=== PATIENT | female | born 1960 | race American Indian/Alaskan Native ===

== ENCOUNTER 2017-05-11 17:35 | Inpatient (IN) | payer MEDICAID ==
[2017-05-11] MEDS ORDERED: ASPIRIN PO ONE (18:08)
[2017-05-11 18:54] LABS: Basophils % (Auto) 0.2 % (0.0-1.8); Eosinophils # (Auto) 0.1 K/mm3 (0.0-0.4); Hematocrit 36.5 % (30.3-42.9); Hemoglobin 12.2 gm/dl (10.1-14.3); Lymphocytes # (Auto) 2.1 K/mm3 (1.2-5.4); Lymphocytes % (Auto) 25.5 % (13.4-35.0); Mean Corpuscular HGB Conc 33 % (30-34); Mean Corpuscular Hemoglobin 28 pg (28-32); Mean Corpuscular Volume 85 fl (79-97); Monocytes # (Auto) 0.5 K/mm3 (0.0-0.8); Monocytes % (Auto) 6.8 % (0.0-7.3); Platelet Count 183 K/mm3 (140-440); Red Blood Count 4.28 M/mm3 (3.65-5.03); Red Cell Distribution Width 17.5 % (13.2-15.2)
[2017-05-11 19:06] LABS: BUN/Creatinine Ratio 15; Blood Urea Nitrogen 17 mg/dL (7-17); Calcium 8.3 mg/dL (8.4-10.2); Hemolysis Index 5
--- NOTE | 2017-05-11 21:10 | XRay Report ---
FINAL REPORT PROCEDURE: XR CHEST ROUTINE 2V TECHNIQUE: PA and lateral chest radiographs were obtained. CPT 00155 HISTORY: chest pain with severe SOB COMPARISON: No prior studies are available for comparison. FINDINGS: Heart: Normal. Mediastinum/Vessels: Normal. Lungs/Pleural space: Normal. Bony thorax: No acute osseous abnormality. Other: IMPRESSION: Normal examination.
--- NOTE | 2017-05-11 23:23 | Emergency Department Report ---
ED Chest Pain HPI - General Chief Complaint: Chest Pain Stated Complaint: CP/LEFT ARM PAIN Time Seen by Provider: 05/11/17 21:20 Source: patient Mode of arrival: Ambulatory Limitations: No Limitations - History of Present Illness Initial Comments: This is a 56-year-old female with a past medical history significant for asthma , COPD, hypertension who states that she has had chest pain described as sharp and then dull and achy more so on the left side with radiation to the left arm and shortness of breath for roughly 2 days. It became worse this morning at 10 AM and has persisted ever since. The patient is tearful and upset. She also states she has left hip pain and right leg pain. She actually then states that the pain is in the back of her leg and in the calf area particularly on the left side. She also reports being short with ambulation. She denies other symptoms at this time. She reflexively for pain. MD Complaint: chest pain -: Gradual, days(s) (2) Pain Location: left chest Pain Radiation: LUE Severity: moderate Severity scale (0 -10): 6 Quality: dull Consistency: intermittent Improves With: nothing Worsens With: nothing re: dyspnea. denies: nausea, vomting, diaphoresis Other Symptoms: denies: cough, fever, syncope Treatments Prior to Arrival: none - Related Data Home Medications Medication Instructions Recorded Confirmed Last Taken ALBUTEROL Inhaler [ProAir HFA 8.5 gram IH DAILY PRN 05/11/17 05/11/17 04/21/17 Inhaler] Bupropion HCl [Wellbutrin Xl] 300 mg PO QAM 05/11/17 05/11/17 04/21/17 Fluticasone/Vilanterol [Breo 1 each IH BID 05/11/17 05/11/17 04/21/17 Ellipta 200-25 Mcg INH] Simvastatin [Zocor TAB] 20 mg PO DAILY 05/11/17 05/11/17 04/21/17 Trazodone HCl 50 mg PO QPM 05/11/17 05/11/17 04/21/17 Allergies Allergy/AdvReac Type Severity Reaction Status Date / Time aspirin Allergy Rash Verified 05/11/17 18:04 banana Allergy Rash Verified 05/11/17 18:04 Heart Score - HEART Score History: Moderately suspicious EKG: Non-specific Age: 45-65 Risk factors: 1-2 risk factors Troponin: < normal limit HEART Score: 4 ED Review of Systems ROS: Stated complaint: CP/LEFT ARM PAIN Other details as noted in HPI Comment: All other systems reviewed and negative Constitutional: see HPI Eyes: as per HPI ENT: as per HPI Respiratory: see HPI Cardiovascular: as per HPI Endocrine: see HPI Gastrointestinal: as per HPI Genitourinary: as per HPI Musculoskeletal: as per HPI Skin: as per HPI Neurological: as per HPI Psychiatric: as per HPI Hematological/Lymphatic: as per HPI ED Past Medical Hx - Past Medical History Previous Medical History?: Yes Hx Hypertension: Yes Hx Asthma: Yes Hx COPD: Yes - Surgical History Past Surgical History?: Yes Hx Cholecystectomy: Yes Additional Surgical History: Hysterectomy - Social History Smoking Status: Former Smoker Substance Use Type: Alcohol, Prescribed - Medications Home Medications: Home Medications Medication Instructions Recorded Confirmed Last Taken Type ALBUTEROL Inhaler [ProAir HFA 8.5 gram IH DAILY PRN 05/11/17 05/11/17 04/21/17 History Inhaler] Bupropion HCl [Wellbutrin Xl] 300 mg PO QAM 05/11/17 05/11/17 04/21/17 History Fluticasone/Vilanterol [Breo 1 each IH BID 05/11/17 05/11/17 04/21/17 History Ellipta 200-25 Mcg INH] Simvastatin [Zocor TAB] 20 mg PO DAILY 05/11/17 05/11/17 04/21/17 History Trazodone HCl 50 mg PO QPM 05/11/17 05/11/17 04/21/17 History ED Physical Exam - General Limitations: No Limitations General appearance: alert, in no apparent distress - Eye Eye exam: Present: normal appearance, PERRL, EOMI - ENT ENT exam: Present: normal exam, normal orophraynx - Neck Neck exam: Present: normal inspection - Respiratory Respiratory exam: Present: normal lung sounds bilaterally. Absent: respiratory distress, wheezes, rales, rhonchi - Cardiovascular Cardiovascular Exam: Present: regular rate, normal rhythm, normal heart sounds - GI/Abdominal GI/Abdominal exam: Present: soft, normal bowel sounds - Rectal Rectal exam: Present: deferred - Extremities Exam Extremities exam: Present: normal inspection, tenderness (throughout the extremities bilaterally but she appears to have more pain in the left calf muscle.) - Back Exam Back exam: Present: normal inspection - Neurological Exam Neurological exam: Present: alert, oriented X3, CN II-XII intact - Psychiatric Psychiatric exam: Present: anxious - Skin Skin exam: Present: warm, dry, intact, normal color ED Course Vital Signs 05/11/17 05/11/17 05/11/17 18:04 21:11 21:12 Temperature 98 F Pulse Rate 76 73 Respiratory 22 16 16 Rate Blood Pressure 131/83 Blood Pressure 122/65 [Left] O2 Sat by Pulse 100 98 Oximetry - Reevaluation(s) Reevaluation #1: 05/12/17 00:20 I tried to reassure the patient that her cardiac enzymes were negative. Her d- dimer was also negative as well as a BNP. I discussed case with the hospitalist and we will go ahead and admit the patient for chest pain at this time. The patient morphine and Zofran and Valium. ED Medical Decision Making - Lab Data Result diagrams: 05/11/17 18:39 05/11/17 18:39 Critical care attestation.: If time is entered above; I have spent that time in minutes in the direct care of this critically ill patient, excluding procedure time. ED Disposition Clinical Impression: Chest pain at rest, Myalgia COPD (chronic obstructive pulmonary disease) Qualifiers: COPD type: chronic bronchitis Chronic bronchitis type: unspecified Qualified Code(s): J42 - Unspecified chronic bronchitis Disposition: OP ADMIT IP TO THIS HOSP Is pt being admited?: Yes Does the pt Need Aspirin: No Condition: Stable Instructions: Chest Pain (ED), Chronic Obstructive Pulmonary Disease (ED) Referrals: SAIMA LOCKHART MD [Primary Care Provider] - 3-5 Days
[2017-05-11] MEDS ORDERED: VALIUM PO ONE (23:39)
[2017-05-11] MEDS ORDERED: MORPHINE IV ONE (23:39)
[2017-05-11] MEDS ORDERED: ZOFRAN IV ONE (23:39)
[2017-05-12] MEDS ORDERED: MORPHINE ONE (00:10)
[2017-05-12 00:16] LABS: Alanine Aminotransferase 11 units/L (7-56); Albumin 3.3 g/dL (3.9-5)
[2017-05-12 00:25] LABS: Bilirubin,Direct < 0.2 mg/dL (0-0.2)
[2017-05-12] MEDS ORDERED: SODIUM CHLORIDE FLUSH SYRINGE 10 ML IV PRN (00:36)
[2017-05-12] MEDS ORDERED: ZOFRAN IV PRN (00:36)
[2017-05-12] MEDS ORDERED: TYLENOL PO PRN (00:36)
[2017-05-12 01:40] LABS: Creatine Kinase MB 1.7 ng/mL (0.0-4.0)
--- NOTE | 2017-05-12 02:36 | History and Physical Report ---
History of Present Illness Date of examination: 05/12/17 Date of admission: 05/12/17 00:37 History of present illness: 56-year-old lady with a history of COPD, hypertension, asthma comes emergency room with complaints of chest pain and left-sided that started yesterday. She described the pain as dull, intermittent, 15 minutes, intensity 4/10, but the pain is now constant. She cannot identify exacerbating or relieving factor, no radiation. Admits to nausea, shortness of breath, no diaphoresis or palpitation. She does stress test 3 months ago which was negative Review of systems Constitutional: no weight loss, chills Ears, eyes, nose, mouth and throat: no nasal congestion, no nasal discharge, no sinus pressure, no vision change, no red eye. Neck: No neck pain or rigidity. Cardiovascular: no palpitations Respiratory: No cough Gastrointestinal: no abdominal pain, hematochezia Genitourinary : no dysuria, frequency , no hematuria Musculoskeletal: no joint swelling or muscle ache Integumentary: no rash, no pruritis Neurological: no parathesias, no numbness, no focal weakness Endocrine: no cold or heat intolerance, no polyuria or polydipsia Hematologic/Lymphatic: no easy bruising, no easy bleeding, no gland swelling Allergic/Immunologic: no urticaria, no angioedema. PAST MEDICAL HISTORY: COPD, asthma, hypertension PAST SURGICAL HISTORY: Hysterectomy, cholecystectomy SOCIAL HISTORY: Denies focal, tobacco, drugs FAMILY HISTORY: Hypertension Medications and Allergies Allergies Allergy/AdvReac Type Severity Reaction Status Date / Time aspirin Allergy Rash Verified 05/11/17 18:04 banana Allergy Rash Verified 05/11/17 18:04 Home Medications Medication Instructions Recorded Confirmed Last Taken Type ALBUTEROL Inhaler [ProAir HFA 8.5 gram IH DAILY PRN 05/11/17 05/11/17 04/21/17 History Inhaler] Bupropion HCl [Wellbutrin Xl] 300 mg PO QAM 05/11/17 05/11/17 04/21/17 History Fluticasone/Vilanterol [Breo 1 each IH BID 05/11/17 05/11/17 04/21/17 History Ellipta 200-25 Mcg INH] Simvastatin [Zocor TAB] 20 mg PO DAILY 05/11/17 05/11/17 04/21/17 History Trazodone HCl 50 mg PO QPM 05/11/17 05/11/17 04/21/17 History Active Meds: Active Medications Acetaminophen (Tylenol) 650 mg PO Q4H PRN PRN Reason: Pain MILD(1-3)/Fever >100.5/[place] Enoxaparin Sodium (Lovenox) 40 mg SUB-Q QDAY LEONARD Morphine Sulfate (Morphine) 2 mg IV Q4H PRN PRN Reason: Pain, Moderate (4-6) Ondansetron HCl (Zofran) 4 mg IV Q8H PRN PRN Reason: Nausea And Vomiting Sodium Chloride (Sodium Chloride Flush Syringe 10 Ml) 10 ml IV BID LEONARD Sodium Chloride (Sodium Chloride Flush Syringe 10 Ml) 10 ml IV PRN PRN PRN Reason: LINE FLUSH Exam - Physical Exam Narrative exam: Gen. appearance: Patient lying in bed, no apparent distress HEENT: Normocephalic, atraumatic, pupils equally round and reactive to light, extraocular movement intact, and no sclericterus,. No JVD or thyromegaly or nodule,neck supple, no carotid bruit ,mucous membranes moist, no exudate or erythema Heart: S1, S2, regular rate and rhythm Lungs: Clear to auscultation bilaterally, breathing comfortable Abdomen: Positive bowel sounds, nontender, nondistended, no organomegaly Extremity: No edema, cyanosis, clubbing Skin: No rash, nodules, warm, dry Neuro: Oriented 3, cranial nerves II-12 intact, speech is fluent, motor and sensory intact - Constitutional Vitals: Temp Pulse Resp BP Pulse Ox 98 F 73 16 122/65 98 05/11/17 18:04 05/11/17 21:11 05/11/17 21:12 05/11/17 21:11 05/11/17 21:12 Results - Labs CBC & Chem 7: 05/11/17 18:39 05/11/17 18:39 Labs: Abnormal lab results 05/11/17 05/11/17 05/11/17 Range/Units 18:39 18:39 23:30 RDW 17.5 H (13.2-15.2) % Glucose 104 H (65-100) mg/dL Calcium 8.3 L (8.4-10.2) mg/dL Albumin 3.3 L (3.9-5) g/dL - Imaging and Cardiology EKG: image reviewed Chest x-ray: image reviewed Assessment and Plan Assessment Chest pain Hypertension COPD Asthma Plan Cjheck cardiac enzymes, consult cardiology, patient had recent stress test IV morphine, DVT prophalaxis
[2017-05-12] MEDS ORDERED: PROAIR IH PRN (02:40)
[2017-05-12] MEDS ORDERED: PROVENTIL IH PRN (02:49)
[2017-05-12] MEDS: MORPHINE IV PRN ×3 (03:58→20:23)
[2017-05-12 06:22] LABS: Creatine Kinase MB 1.6 ng/mL (0.0-4.0)
[2017-05-12] MEDS: BROVANA NEBU IH SCH ×2 (08:29→20:04)
[2017-05-12] MEDS: PULMICORT IH SCH ×2 (08:29→20:04)
[2017-05-12] MEDS ORDERED: NON-FORMULARY (Fluticasone/Vilanterol [Breo Ellipta 200-25 Mcg Inh] 1 EACH) IH SCH (10:00)
[2017-05-12] MEDS: WELLBUTRIN XL PO SCH (10:30)
[2017-05-12] MEDS: LOVENOX SUB-Q SCH (10:30)
[2017-05-12] MEDS: SODIUM CHLORIDE FLUSH SYRINGE 10 ML IV SCH ×2 (10:33→23:56)
[2017-05-12] MEDS ORDERED: Fluarix Quad 2017-2018(36 MOS+ IM ONE (12:00)
[2017-05-12] MEDS ORDERED: PNEUMOVAX 23 IM ONE (12:00)
--- NOTE | 2017-05-12 12:02 | Consultation ---
History of Present Illness Consult date: 05/12/17 Consult reason: chest pain History of present illness: This is a 56yr old woman who presents with atypical chest pain. Patient reports chest pain with deep breathing and movement. Chest pain is non-exertional. In addition, patient complains of back pain and bilateral lower extremity pain. Cycled cardiac enzymes are normal. An ECG shows a normal sinus rhythm. Her most recent cardiac workup was done 5 months ago. At that time, patient had a negative treadmill test and a normal LVEF on echocardiogram. Medications and Allergies Allergies Allergy/AdvReac Type Severity Reaction Status Date / Time aspirin Allergy Rash Verified 05/11/17 18:04 banana Allergy Rash Verified 05/11/17 18:04 Home Medications Medication Instructions Recorded Confirmed Last Taken Type ALBUTEROL Inhaler [ProAir HFA 8.5 gram IH DAILY PRN 05/11/17 05/11/17 04/21/17 History Inhaler] Bupropion HCl [Wellbutrin Xl] 300 mg PO QAM 05/11/17 05/11/17 04/21/17 History Fluticasone/Vilanterol [Breo 1 each IH BID 05/11/17 05/11/17 04/21/17 History Ellipta 200-25 Mcg INH] Simvastatin [Zocor TAB] 20 mg PO DAILY 05/11/17 05/11/17 04/21/17 History Trazodone HCl 50 mg PO QPM 05/11/17 05/11/17 04/21/17 History Active Meds: Active Medications Acetaminophen (Tylenol) 650 mg PO Q4H PRN PRN Reason: Pain MILD(1-3)/Fever >100.5/[place] Albuterol (Proventil) 2.5 mg IH QDAY PRN PRN Reason: Shortness Of Breath Arformoterol Tartrate (Brovana Nebu) 15 mcg IH Q12HRT [facility] Last Admin: 05/12/17 08:29 Dose: 15 mcg Budesonide (Pulmicort) 1 mg IH Q12HRT [facility] Last Admin: 05/12/17 08:29 Dose: 1 mg Bupropion HCl (Wellbutrin Xl) 300 mg PO QAM [facility] Last Admin: 05/12/17 10:30 Dose: 300 mg Enoxaparin Sodium (Lovenox) 40 mg SUB-Q QDAY [facility] Last Admin: 05/12/17 10:30 Dose: 40 mg Influenza Virus Vaccine Quadrival (Fluarix Quad [id number](36 Mos+) 0.5 ml IM .ONCE ONE Stop: 05/12/17 12:01 Morphine Sulfate (Morphine) 2 mg IV Q4H PRN PRN Reason: Pain, Moderate (4-6) Last Admin: 05/12/17 10:40 Dose: 2 mg Ondansetron HCl (Zofran) 4 mg IV Q8H PRN PRN Reason: Nausea And Vomiting Pneumococcal Polyvalent Vaccine (Pneumovax 23) 0.5 ml IM .ONCE ONE Stop: 05/12/17 12:01 Pravastatin Sodium (Pravachol) 40 mg PO QHS [facility] Sodium Chloride (Sodium Chloride Flush Syringe 10 Ml) 10 ml IV BID [facility] Last Admin: 05/12/17 10:33 Dose: 10 ml Sodium Chloride (Sodium Chloride Flush Syringe 10 Ml) 10 ml IV PRN PRN PRN Reason: LINE FLUSH Trazodone HCl (Desyrel) 50 mg PO QPM [facility] Physical Examination Vital Signs Temp Pulse Resp BP Pulse Ox 98 F 76 22 131/83 100 05/11/17 18:04 05/11/17 18:04 05/11/17 18:04 05/11/17 18:04 05/11/17 18:04 HEENT: Positive: PERRL Cardiac: Positive: Reg Rate and Rhythm Lungs: Positive: Decreased Breath Sounds Neuro: Positive: Grossly Intact Extremities: Absent: edema Results 05/11/17 18:39 05/11/17 18:39 Cardiac Enzymes 05/11/17 05/12/17 05/12/17 Range/Units 23:30 00:09 05:44 AST 12 (5-40) units/L CK-MB (CK-2) 1.7 1.6 (0.0-4.0) ng/mL CBC 05/11/17 Range/Units 18:39 WBC 8.1 (4.5-11.0) K/mm3 RBC 4.28 (3.65-5.03) M/mm3 Hgb 12.2 (10.1-14.3) gm/dl Hct 36.5 (30.3-42.9) % Plt Count 183 (140-440) K/mm3 Lymph # 2.1 (1.2-5.4) K/mm3 [place] # 0.5 (0.0-0.8) K/mm3 Eos # 0.1 (0.0-0.4) K/mm3 Baso # 0.0 (0.0-0.1) K/mm3 Comprehensive Metabolic Panel 05/11/17 05/11/17 Range/Units 18:39 23:30 Sodium 140 (137-145) mmol/L Potassium 3.9 (3.6-5.0) mmol/L Chloride 101.7 (98-107) mmol/L Carbon Dioxide 27 (22-30) mmol/L BUN 17 (7-17) mg/dL Creatinine 1.1 (0.7-1.2) mg/dL Glucose 104 H (65-100) mg/dL Calcium 8.3 L (8.4-10.2) mg/dL Direct Bilirubin < 0.2 (0-0.2) mg/dL Indirect Bilirubin 0.0 mg/dL AST 12 (5-40) units/L ALT 11 (7-56) units/L Alkaline Phosphatase 97 (35-129) units/L Total Protein 6.6 (6.3-8.2) g/dL Albumin 3.3 L (3.9-5) g/dL Assessment and Plan Chest pain, atypical negative CE's normal ECG normal TMST 11/2016 normal LVEF on echo 11/2016 No further cardiac workup indicated.
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
--- NOTE | 2017-05-12 20:37 | Magnetic Resonance Report ---
FINAL REPORT PROCEDURE: MR CERVICAL SPINE WO CON TECHNIQUE: Magnetic resonance imaging of the cervical spine was performed using standard pulse sequences without contrast material. HISTORY: neck pains with radiculopathy, h/o herniated disk COMPARISON: No prior studies are available for comparison. FINDINGS: There is straightening of the cervical spine. Vertebral height and bone marrow signal are within normal limits. Cervical spinal cord demonstrates normal size and signal characteristics. Visualized posterior fossa structures are unremarkable. Prevertebral soft tissues are within normal limits. C1-2: No significant abnormality. C2-3: No significant abnormality . C3-4: Mild to moderate degree bilateral neural foraminal stenosis is noted secondary to uncovertebral degenerative changes.. C4-5: Mild degree central disc herniation is noted measuring 6 millimeters x 4 millimeters x 7 millimeters in transverse, AP and craniocaudal dimensions causing moderate deformity of the ventral cord.. C5-6: Mild degree broad-based disc osteophyte complex is noted without significant spinal canal or neural foraminal compromise.. C6-7: No significant abnormality . C7-T1: No significant abnormality . Other: None . IMPRESSION: Central disc herniation at C4-5 as described above. Additional multilevel degenerative changes as described above. Straightening of the cervical spine is most likely secondary to spasm.
[2017-05-12] MEDS: PRAVACHOL PO SCH (21:26)
[2017-05-12] MEDS: PROTONIX PO SCH (21:29)
[2017-05-12] MEDS: DESYREL PO SCH (21:29)
[2017-05-13] MEDS ORDERED: BENADRYL IV PRN (00:02)
[2017-05-13 06:09] LABS: Basophils % (Auto) 0.4 % (0.0-1.8); Eosinophils # (Auto) 0.1 K/mm3 (0.0-0.4); Eosinophils % (Auto) 2.1 % (0.0-4.3); Hematocrit 34.8 % (30.3-42.9); Hemoglobin 11.2 gm/dl (10.1-14.3); Lymphocytes # (Auto) 1.5 K/mm3 (1.2-5.4); Lymphocytes % (Auto) 28.4 % (13.4-35.0); Mean Corpuscular HGB Conc 32 % (30-34); Mean Corpuscular Hemoglobin 28 pg (28-32); Mean Corpuscular Volume 86 fl (79-97); Monocytes # (Auto) 0.4 K/mm3 (0.0-0.8); Monocytes % (Auto) 7.7 % (0.0-7.3); Platelet Count 177 K/mm3 (140-440); Red Blood Count 4.04 M/mm3 (3.65-5.03); Red Cell Distribution Width 17.3 % (13.2-15.2)
[2017-05-13 06:29] LABS: BUN/Creatinine Ratio 20; Blood Urea Nitrogen 16 mg/dL (7-17); Calcium 8.2 mg/dL (8.4-10.2)
[2017-05-13 06:30] LABS: Hemolysis Index 3
[2017-05-13] MEDS: BROVANA NEBU IH SCH ×2 (08:01→20:33)
[2017-05-13] MEDS: PULMICORT IH SCH ×2 (08:02→20:34)
[2017-05-13] MEDS: SODIUM CHLORIDE FLUSH SYRINGE 10 ML IV SCH ×2 (10:00→23:29)
[2017-05-13] MEDS: PROTONIX PO SCH (10:01)
[2017-05-13] MEDS: LOVENOX SUB-Q SCH (10:01)
[2017-05-13] MEDS: WELLBUTRIN XL PO SCH (10:01)
[2017-05-13] MEDS: MORPHINE IV PRN ×3 (10:16→23:29)
--- NOTE | 2017-05-13 11:02 | Progress Note ---
Assessment and Plan Chest pain, atypical negative CE's normal ECG normal TMST 11/2016 normal LVEF on echo 11/2016 Bilateral hand numbness disc herniation at C4-5 on MRI Conservative cardiac management. Subjective Date of service: 05/13/17 Interval history: Patient has no cardiac complaints. Objective Vital Signs Temp Pulse Pulse Resp Resp Resp BP 05/13/17 10:16 20 05/13/17 10:00 20 05/13/17 08:12 66 20 05/13/17 08:01 64 20 05/13/17 04:09 98.1 F 64 20 128/71 05/13/17 01:05 72 05/12/17 23:09 98.2 F 69 20 120/76 05/12/17 21:26 22 05/12/17 20:23 22 05/12/17 20:08 70 16 05/12/17 20:05 05/12/17 19:57 65 18 05/12/17 19:44 98.7 F 63 20 120/75 05/12/17 15:54 77 18 106/70 05/12/17 11:44 98.2 F 64 18 BP Pulse Ox 05/13/17 10:16 05/13/17 10:00 05/13/17 08:12 05/13/17 08:01 05/13/17 04:09 93 05/13/17 01:05 05/12/17 23:09 92 05/12/17 21:26 05/12/17 20:23 05/12/17 20:08 05/12/17 20:05 96 05/12/17 19:57 05/12/17 19:44 98 05/12/17 15:54 98 05/12/17 11:44 118/71 97 - Physical Examination General: No Apparent Distress HEENT: Positive: PERRL Cardiac: Positive: Reg Rate and Rhythm Lungs: Positive: Decreased Breath Sounds Neuro: Positive: Grossly Intact Extremities: Absent: edema - Labs and Meds CBC 05/13/17 Range/Units 04:41 WBC 5.3 (4.5-11.0) K/mm3 RBC 4.04 (3.65-5.03) M/mm3 Hgb 11.2 (10.1-14.3) gm/dl Hct 34.8 (30.3-42.9) % Plt Count 177 (140-440) K/mm3 Lymph # 1.5 (1.2-5.4) K/mm3 [place] # 0.4 (0.0-0.8) K/mm3 Eos # 0.1 (0.0-0.4) K/mm3 Baso # 0.0 (0.0-0.1) K/mm3 Comprehensive Metabolic Panel 05/13/17 Range/Units 04:41 Sodium 139 (137-145) mmol/L Potassium 3.9 (3.6-5.0) mmol/L Chloride 100.8 (98-107) mmol/L Carbon Dioxide 24 (22-30) mmol/L BUN 16 (7-17) mg/dL Creatinine 0.8 (0.7-1.2) mg/dL Glucose 113 H (65-100) mg/dL Calcium 8.2 L (8.4-10.2) mg/dL - Imaging and Cardiology EKG: image reviewed
--- NOTE | 2017-05-13 15:54 | Event Note ---
Date: 05/13/17 Progress note on paper because Proficiency was down.
[2017-05-13] MEDS: BENADRYL PO PRN ×2 (17:38→23:30)
[2017-05-13] MEDS: PRAVACHOL PO SCH (21:04)
[2017-05-13] MEDS: DESYREL PO SCH (21:04)
[2017-05-14] MEDS: MORPHINE IV PRN ×3 (04:37→14:15)
[2017-05-14] MEDS: WELLBUTRIN XL PO SCH (10:04)
[2017-05-14] MEDS: SODIUM CHLORIDE FLUSH SYRINGE 10 ML IV SCH (10:04)
[2017-05-14] MEDS: PROTONIX PO SCH (10:04)
--- NOTE | 2017-05-14 11:46 | Progress Note ---
Assessment and Plan Chest pain, atypical negative CE's normal ECG normal TMST 11/2016 normal LVEF on echo 11/2016 Bilateral hand numbness disc herniation at C4-5 on MRI Conservative cardiac management. Subjective Date of service: 05/14/17 Interval history: Patient has no cardiac complaints. Objective Vital Signs Temp Pulse Resp BP BP Pulse Ox 05/14/17 10:10 20 05/14/17 07:29 98.1 F 66 18 116/70 96 05/14/17 04:43 97.5 F L 84 20 160/95 96 05/13/17 23:50 98.3 F 70 18 131/76 98 05/13/17 22:00 71 05/13/17 20:34 97 05/13/17 19:57 98.6 F 76 20 110/59 98 05/13/17 17:38 20 05/13/17 16:29 98.0 F 66 18 107/64 99 05/13/17 11:51 97.6 F 62 16 121/70 99 - Physical Examination General: No Apparent Distress HEENT: Positive: PERRL Cardiac: Positive: Reg Rate and Rhythm Neuro: Positive: Grossly Intact Extremities: Absent: edema - Imaging and Cardiology EKG: image reviewed
[2017-05-14 12:05] VITALS: BP 121/75
--- NOTE | 2017-05-14 12:40 | Discharge Summary ---
Providers - Providers Date of Admission: 05/12/17 00:37 Date of discharge: 05/14/17 Attending physician: WES DAVIS 05/12/17 12:08 Physical Therapy Evaluation and Treat [CONS] Routine Comment: Reason For Exam: new c/o pain and weakness to lower extremities 05/13/17 15:52 Consult to Physician [CONS] Routine Comment: Consulting Provider: CHUCKY POLANCO Physician Instructions: Reason For Exam: c4-c5 disc herniation Primary care physician: SAIMA LOCKHART Hospitalization Condition: Stable Hospital course: Patient is a 56-year-old woman with history of COPD, anxiety, hypertension and osteoarthritis who presents with chest pain, shortness of breath and nausea without vomiting. Patient also gives a history of neck pains with bilateral hand and fingertips tingling, history of herniated disks 2009 Chest x-ray report is normal -Chest pains, atypical, GERD pain: Cardiology evaluated, noncardiac most likely -Neck pains with radiculopathy bilateral fingers: will get MRI of neck==>C4-5 disc herniation, she has not lost function. I did speak [facility] [place] transfer center [phone], Dr. David Joiner, eladio to follow up in office. -GERD: treat with PPI -Hypertension: Medication reconciliation reviewed She denies neck pains. Disposition: DC- TO HOME OR SELFCARE Time spent for discharge: 34 minutes Core Measure Documentation - Palliative Care Palliative Care/ Comfort Measures: Not Applicable - Core Measures Any of the following diagnoses?: none - VTE Discharge Requirements Deep Vein Thrombosis/Pulmonary Embolism Present on Admission: No Has pt received <5 days of overlap therapy or INR<2.0: No Anticoagulant overlap therapy prescribed at discharge: No Contraindication No Overlap Therapy order at DC: Not Indicated Exam - Physical Exam Narrative exam: GEN: WDWN, NAD, AWAKE, ALERT, ORIENTATED 3 HEENT: NCAT, EOMI, PERRL, OP Clear NECK: Difficult with extension, no adenopathy, no thyromegaly, no JVD CVS/HEART: RRR, NORMAL S1S2, pulses present bilaterally CHEST/LUNGS: CTA B, Symmetrical chest expansion, good air entry bilaterally, reproducible chest wall tenderness GI/Abdomen: soft, NTND, good bowel sounds, no guarding or rebound /Bladder: no suprapubic tenderness, no CVA or paraspinal tenderness EXT/Skin: no c/c/e, no obvious rash MSK: FROM x 4 Neuro: CN 2-12 grossly intact, no new focal deficits, hand grasp equal on both side, 4/5 strength. Psych: calm - Constitutional Vitals: Temp Pulse Resp BP Pulse Ox 98.6 F 68 18 121/75 100 05/14/17 11:18 05/14/17 11:18 05/14/17 11:18 05/14/17 11:18 05/14/17 11:18 Plan Activity: no driving until cleared by PCP, other (no strenous activity until cleared by pcp) Diet: low salt Additional Instructions: Please see Dr. Joiner as soon as possible, MUST TAKE CD to the appointment. Dr. David Joiner. Neurological surgery. [address] [place] [address] [address], [place] [address]. [phone] Follow up with: SAIMA LOCKHART MD [Primary Care Provider] - 3-5 Days Prescriptions: ALBUTEROL Inhaler [ProAir HFA Inhaler] 8.5 gram IH DAILY PRN #1 inha PRN Reason: Shortness Of Breath Bupropion HCl [Wellbutrin Xl] 300 mg PO QAM #30 tab.er.24h Fluticasone/Vilanterol [Breo Ellipta 200-25 Mcg INH] 1 each IH BID #1 blst.w.dev Pantoprazole [Protonix TAB] 40 mg PO QDAY #30 tablet Simvastatin [Zocor TAB] 20 mg PO DAILY #30 tablet Trazodone HCl 50 mg PO QPM #30 tablet
[2017-05-14] MEDS: PULMICORT IH SCH (13:19)
[2017-05-14] MEDS: BROVANA NEBU IH SCH (13:20)
== END 2017-05-14 15:40 | disposition home or self-care (01) | DRG 392 ==
LOC: ED 17:35 → 4A 05-12 00:37
PROVIDERS: ADMIT Internal Medicine; ATTEND Internal Medicine
PROC: 3E0234Z Introduction of Serum, Toxoid and Vaccine into Muscle, Percutaneous Approach (ICD-10-PCS; principal; 2017-05-12)
DX: K21.9 Gastro-esophageal reflux disease without esophagitis (principal); I10 Essential (primary) hypertension; J44.9 Chronic obstructive pulmonary disease, unspecified; F41.9 Anxiety disorder, unspecified; M19.90 Unspecified osteoarthritis, unspecified site; M50.121 Cervical disc disorder at C4-C5 level with radiculopathy; Z23 Encounter for immunization; Z88.6 Allergy status to analgesic agent; Z88.8 Allergy status to other drugs, medicaments and biological substances; Z79.899 Other long term (current) drug therapy; Z90.710 Acquired absence of both cervix and uterus; Z87.891 Personal history of nicotine dependence; Z90.49 Acquired absence of other specified parts of digestive tract; Z82.49 Family history of ischemic heart disease and other diseases of the circulatory system
CPT/HCPCS: 36415; 71046; 72141; 80048; 80074; 82550; 82553; 83880; 84484; 85025; 85379; 90686; 90732; 93005; 93010; 94640; 96374; 96375; 99406; A9270-GY; J1200; J1650; J2270; J2405

== ENCOUNTER 2017-12-07 10:12 | Emergency (ER) | payer MEDICAID ==
[2017-12-07 11:26] VITALS: BP 125/81
[2017-12-07 11:51] LABS: Basophils % (Auto) 0.5 % (0.0-1.8); Eosinophils # (Auto) 0.2 K/mm3 (0.0-0.4); Eosinophils % (Auto) 2.5 % (0.0-4.3); Hematocrit 38.9 % (30.3-42.9); Hemoglobin 12.8 gm/dl (10.1-14.3); Mean Corpuscular HGB Conc 33 % (30-34); Mean Corpuscular Hemoglobin 29 pg (28-32); Mean Corpuscular Volume 87 fl (79-97); Monocytes # (Auto) 0.4 K/mm3 (0.0-0.8); Monocytes % (Auto) 4.9 % (0.0-7.3); Platelet Count 194 K/mm3 (140-440); Red Blood Count 4.46 M/mm3 (3.65-5.03); Red Cell Distribution Width 17.7 % (13.2-15.2)
[2017-12-07 12:12] LABS: BUN/Creatinine Ratio 24; Blood Urea Nitrogen 19 mg/dL (7-17); Calcium 8.9 mg/dL (8.4-10.2); Hemolysis Index 9
[2017-12-07] MEDS ORDERED: ZOFRAN ODT PO ONE (12:32)
[2017-12-07] MEDS ORDERED: MOTRIN PO ONE (12:32)
--- NOTE | 2017-12-07 12:32 | Emergency Department Report ---
ED Chest Pain HPI - General Chief Complaint: Chest Pain Stated Complaint: CHEST/NECK/LEG PAIN Time Seen by Provider: 12/07/17 12:21 Source: patient, family Mode of arrival: Ambulatory Limitations: No Limitations - History of Present Illness Initial Comments: 57 y/o F, hx hyperlipidemia in with chest pain that began yesterday and is intermittent but not related to exertion. Reports she also has pain in her neck and intermittently in her legs. Denies further complaints. MD Complaint: chest pain -: Gradual, days(s) (1) Onset: during rest Pain Location: other (diffuse) Pain Radiation: neck Severity: moderate Severity scale (0 -10): 4 Quality: tightness Consistency: intermittent Improves With: nothing Worsens With: movement Context: new medications re: nausea, dyspnea. denies: vomting Other Symptoms: denies: cough, fever, syncope, leg swelling, palpitations Treatments Prior to Arrival: none Aspirin use within the Past 7 Days: (0) No - Related Data Previous Rx's Medication Instructions Recorded Last Taken Type ALBUTEROL Inhaler (OR & NICU) 8.5 gram IH DAILY PRN #1 inha 05/14/17 Unknown Rx [ProAir HFA Inhaler] Acetaminophen [Acetaminophen TAB] 650 mg PO Q4H PRN #30 tablet 05/14/17 Unknown Rx Bupropion HCl [Wellbutrin Xl] 300 mg PO QAM #30 tab.er.24h 05/14/17 Unknown Rx Fluticasone/Vilanterol [Breo 1 each IH BID #1 blst.w.dev 05/14/17 Unknown Rx Ellipta 200-25 Mcg INH] Pantoprazole [Protonix TAB] 40 mg PO QDAY #30 tablet 05/14/17 Unknown Rx Simvastatin [Zocor TAB] 20 mg PO DAILY #30 tablet 05/14/17 Unknown Rx Trazodone HCl 50 mg PO QPM #30 tablet 05/14/17 Unknown Rx diphenhydrAMINE [Benadryl CAP] 25 mg PO Q6H PRN #10 capsule 05/14/17 Unknown Rx predniSONE [Deltasone] 40 mg PO QDAY #10 tablet 12/07/17 Unknown Rx Allergies Allergy/AdvReac Type Severity Reaction Status Date / Time aspirin Allergy Rash Verified 05/11/17 18:04 banana Allergy Rash Verified 05/11/17 18:04 Heart Score - HEART Score History: Slightly suspicious EKG: Normal Age: 45-65 Risk factors: 1-2 risk factors Troponin: < normal limit HEART Score: 2 - Critical Actions Critical Actions: 0-3 pts:0.9-1.7%risk of adverse cardiac event.Candidate for discharge ED Review of Systems ROS: Stated complaint: CHEST/NECK/LEG PAIN Other details as noted in HPI Comment: All other systems reviewed and negative Constitutional: denies: chills, fever Eyes: denies: eye pain, eye discharge, vision change ENT: denies: ear pain, throat pain Respiratory: shortness of breath. denies: cough, wheezing Cardiovascular: chest pain. denies: palpitations Endocrine: no symptoms reported Gastrointestinal: nausea. denies: abdominal pain, diarrhea Genitourinary: denies: urgency, dysuria, discharge Musculoskeletal: myalgia. denies: back pain, joint swelling, arthralgia Skin: denies: rash, lesions Neurological: denies: headache, weakness, paresthesias Psychiatric: denies: anxiety, depression Hematological/Lymphatic: denies: easy bleeding, easy bruising ED Past Medical Hx - Past Medical History Hx Hypertension: Yes Hx Congestive Heart Failure: No Hx Diabetes: No Hx Asthma: Yes Hx COPD: Yes Additional medical history: high cholesterol - Surgical History Hx Cholecystectomy: Yes Additional Surgical History: Hysterectomy - Social History Smoking Status: Former Smoker - Medications Home Medications: Home Medications Medication Instructions Recorded Confirmed Last Taken Type ALBUTEROL Inhaler (OR & NICU) 8.5 gram IH DAILY PRN #1 inha 05/14/17 Unknown Rx [ProAir HFA Inhaler] Acetaminophen [Acetaminophen TAB] 650 mg PO Q4H PRN #30 tablet 05/14/17 Unknown Rx Bupropion HCl [Wellbutrin Xl] 300 mg PO QAM #30 tab.er.24h 05/14/17 Unknown Rx Fluticasone/Vilanterol [Breo 1 each IH BID #1 blst.w.dev 05/14/17 Unknown Rx Ellipta 200-25 Mcg INH] Pantoprazole [Protonix TAB] 40 mg PO QDAY #30 tablet 05/14/17 Unknown Rx Simvastatin [Zocor TAB] 20 mg PO DAILY #30 tablet 05/14/17 Unknown Rx Trazodone HCl 50 mg PO QPM #30 tablet 05/14/17 Unknown Rx diphenhydrAMINE [Benadryl CAP] 25 mg PO Q6H PRN #10 capsule 05/14/17 Unknown Rx predniSONE [Deltasone] 40 mg PO QDAY #10 tablet 12/07/17 Unknown Rx ED Physical Exam - General Limitations: No Limitations General appearance: alert, in no apparent distress - Head Head exam: Present: atraumatic, normocephalic - Eye Eye exam: Present: normal appearance - ENT ENT exam: Present: mucous membranes moist - Neck Neck exam: Present: normal inspection, full ROM (movement of neck causes pain in chest) - Respiratory Respiratory exam: Present: normal lung sounds bilaterally. Absent: respiratory distress - Cardiovascular Cardiovascular Exam: Present: regular rate, normal rhythm. Absent: systolic murmur, diastolic murmur, rubs, gallop - GI/Abdominal GI/Abdominal exam: Present: soft, normal bowel sounds. Absent: tenderness - Extremities Exam Extremities exam: Present: normal inspection, full ROM. Absent: tenderness, pedal edema, calf tenderness - Back Exam Back exam: Present: normal inspection - Neurological Exam Neurological exam: Present: alert, oriented X3 - Psychiatric Psychiatric exam: Present: normal affect, normal mood - Skin Skin exam: Present: warm, dry, intact, normal color. Absent: rash ED Course Vital Signs 12/07/17 11:20 Temperature 97.6 F Pulse Rate 65 Respiratory 16 Rate Blood Pressure 125/81 O2 Sat by Pulse 100 Oximetry ED Medical Decision Making - Lab Data Result diagrams: 12/07/17 11:30 12/07/17 11:30 troponin negative - EKG Data -: EKG Interpreted by Nv EKG shows normal: sinus rhythm Rate: normal - EKG Data Interpretation: normal EKG, LVH - Radiology Data Radiology results: report reviewed negative cxr - Medical Decision Making Pt presents with multiple complaints including chest pain radiating to neck and L arm. On exam, reproducible with ROM of neck. heart sounds are normal, lungs clear, abdomen soft/nontender. no edema. Atypical presentation, low risk Wells PE, HEART score 2. Recommend outpatient cardiology follow up and return precautions as discussed. - Differential Diagnosis angina, chest wall pain, ACS, PE Critical care attestation.: If time is entered above; I have spent that time in minutes in the direct care of this critically ill patient, excluding procedure time. ED Disposition Clinical Impression: Atypical chest pain, Myalgia Disposition: DC-01 TO HOME OR SELFCARE Is pt being admited?: No Condition: Good Instructions: Chest Pain (ED) Prescriptions: predniSONE [Deltasone] 40 mg PO QDAY #10 tablet Referrals: SHIRA TRIPLETT MD [Primary Care Provider] - 3-5 Days JAUN SMITH MD [Staff Physician] - 3-5 Days Time of Disposition: 13:08
--- NOTE | 2017-12-07 13:02 | XRay Report ---
ROUTINE CHEST, TWO VIEWS: HISTORY: chest pain. The trachea, heart, mediastinal contour, lung burgess and bony thorax are unremarkable. IMPRESSION: Unremarkable chest x-ray. No change since 05/11/17.
== END 2017-12-07 13:23 | disposition home or self-care (01) ==
LOC: ED 10:12
DX: R07.89 Other chest pain (principal); I10 Essential (primary) hypertension; J44.9 Chronic obstructive pulmonary disease, unspecified; E78.00 Pure hypercholesterolemia, unspecified; Z90.710 Acquired absence of both cervix and uterus; Z87.891 Personal history of nicotine dependence; Z88.6 Allergy status to analgesic agent; Z91.018 Allergy to other foods
CPT/HCPCS: 36415; 71046; 80048; 84484; 85025; 93005; 93010; 99284; Q0162

== ENCOUNTER 2019-10-04 13:51 | Outpatient (CLI) | payer MEDICAID ==
--- NOTE | 2019-10-04 16:44 | Magnetic Resonance Report ---
MRI RIGHT SHOULDER WITHOUT CONTRAST INDICATION: Right shoulder pain and impingement. COMPARISON: None available. TECHNIQUE: Multisequence, multiplanar images were obtained. FINDINGS: ACROMIOCLAVICULAR JOINT: Mild degenerative arthrosis without rotator cuff encroachment. ACROMION: Type II SUPRASPINATUS: Partial 50% thickness articular sided tear posterior fibers supraspinatus seen best o n coronal image 9. Partial 50% thickness bursal sided tear involving anterior insertional fibers supr aspinatus seen best on sagittal image 16 and coronal image 11 INFRASPINATUS: Tendinosis SUBSCAPULARIS: No significant abnormality. BICEPS TENDON, LONG HEAD: No significant abnormality. SUBACROMIAL/SUBDELTOID SPACE: No significant abnormality. GLENOID LABRUM: No significant abnormality. ARTICULAR CARTILAGE: No significant abnormality. JOINT SPACE AND CAPSULE: No significant abnormality. BONES: No significant bone marrow edema. No fracture. No osseous lesion. SUBCUTANEOUS SOFT TISSUES: No significant abnormality. ADDITIONAL FINDINGS: None. IMPRESSION: 1. Partial 50% thickness articular sided tear posterior fibers supraspinatus and 50% thickness bursal sided tear anterior supraspinatus 2. Infraspinatus tendinosis Signer Name: Maik Villarreal MD Signed: 10/04/2019 4:40 PM Workstation Name: [email or web address]
== END 2019-10-04 13:52 | disposition home or self-care (01) ==
LOC: MRI 13:51
PROVIDERS: ATTEND Orthopaedic Surgery
DX: M75.111 Incomplete rotator cuff tear or rupture of right shoulder, not specified as traumatic (principal); M75.41 Impingement syndrome of right shoulder; M75.81 Other shoulder lesions, right shoulder

== ENCOUNTER 2019-11-23 08:46 | Day surgery (SDC) | payer MEDICAID ==
[2019-11-21 11:30] LABS: Hematocrit 35.5 % (30.3-42.9); Mean Corpuscular HGB Conc 34 % (30-34); Mean Corpuscular Volume 86 fl (79-97); Platelet Count 177 K/mm3 (140-440); Red Blood Count 4.12 M/mm3 (3.65-5.03); Red Cell Distribution Width 17.2 % (13.2-15.2)
[2019-11-21 11:39] LABS: BUN/Creatinine Ratio 17; Blood Urea Nitrogen 15 mg/dL (7-17); Hemolysis Index 5
[~2019-11-23 08:46] MED LIST: ACETAMINOPHEN 500 MG TAB PO SCH; BUPIVACAINE-EPINEPHRINE/PF 0.25%-1:200,000 (30 ML) VIAL INFILTRATI ONE; GABAPENTIN 300 MG CAP PO NR; LACTATED RINGERS 1,000 ML IV SCH; SODIUM CHLORIDE 0.9% IRRIG SOLN 3000 ML IR ONE; ceFAZolin/STERILE WATER 2 GM/20 ML SYRINGE IV NR; methylPREDNISolone ACETATE 40 MG/1 ML INJ INTRA-ARTI ONE
[2019-11-23] MEDS ORDERED: ONDANSETRON 4 MG/2 ML INJ ONE (09:46)
[2019-11-23] MEDS ORDERED: LIDOCAINE MPF (2%) 20 MG/1 ML VIAL 5 ML ONE (09:46)
[2019-11-23] MEDS ORDERED: ROCURONIUM 50 MG/5 ML INJ IV ONE (09:46)
[2019-11-23] MEDS ORDERED: dexAMETHasone 20 MG/5 ML VIAL ONE (09:46)
[2019-11-23] MEDS ORDERED: HYDROmorphone 1 MG/1 ML INJ ONE (09:46)
[2019-11-23] MEDS ORDERED: propofoL 200 MG/20 ML VIAL IV ONE (09:46)
[2019-11-23] MEDS ORDERED: BACTERIOSTATIC SODIUM CHLORIDE 0.9% 30 ML VIAL INFILTRATI ONE (09:51)
--- NOTE | 2019-11-23 09:55 | Anesthesia Consultation ---
Anesthesia Consult and Med Hx Date of service: 11/23/19 - Airway Anesthetic Teeth Evaluation: Good ROM Head & Neck: Adequate Mental/Hyoid Distance: Adequate Mallampati Class: Class II Intubation Access Assessment: Probably Good - Pulmonary Exam CTA: Yes - Cardiac Exam Cardiac Exam: RRR - Pre-Operative Health Status ASA Pre-Surgery Classification: ASA3 Proposed Anesthetic Plan: General Nerve Block: IS - Pulmonary Hx Smoking: Yes (03/04-03/02 PPD) Hx Asthma: Yes Hx Respiratory Symptoms: No COPD: Yes (took breo inhaler this morning) Hx Sleep Apnea: No (sleep study scheduled) - Cardiovascular System Hx Hypertension: Yes (being monitored; no rx currently) Hx Heart Attack/AMI: No Hx Percutaneous Transluminal Coronary Angioplasty (PTCA): No Hx Cardia Arrhythmia: No - Central Nervous System CVA: No Hx Back Pain: Yes (NECK AND BACK WITH RT HAND/ARM NUMBNESS) Hx Psychiatric Problems: Yes (anxiety/depression/bipolar disorder) - Gastrointestinal Hx Gastroesophageal Reflux Disease: Yes - Endocrine Hx Renal Disease: No Hx Liver Disease: No Hx Insulin Dependent Diabetes: No Hx Thyroid Disease: No - Other Systems Hx Obesity: Yes (BMI 39) - Additional Comments Anesthesia Medical History Comments: No hx anesthetic complications.
--- NOTE | 2019-11-23 09:55 | Anesthesia Day of Surgery ---
Anesthesia Day of Surgery - Day of Surgery Patient Examined: Yes Patient H&P Reviewed: Yes Patient is NPO: Yes
[2019-11-23] MEDS ORDERED: BUPIVACAINE-EPINEPHRINE/PF 0.25%-1:200,000 (10 ML) VIAL INFILTRATI ONE (10:05)
[2019-11-23] MEDS ORDERED: ceFAZolin 1 GM VIAL IM SCH (10:15)
[2019-11-23] MEDS: MIDAZOLAM 2 MG/2 ML INJ IV NR ×2 (11:18→11:23)
[2019-11-23] MEDS: fentaNYL 100 MCG/2 ML INJ IV PRN ×4 (11:18→14:57)
[2019-11-23] MEDS ORDERED: methylPREDNISolone ACETATE 40 MG/1 ML INJ ONE (11:45)
[2019-11-23] MEDS ORDERED: SODIUM CHLORIDE 0.9% IRRIG SOLN 3000 ML IR ONE (13:20)
[2019-11-23] MEDS ORDERED: EPINEPHrine/PF 1 MG/1 ML INJ IV ONE (13:20)
[2019-11-23] MEDS ORDERED: NEOSTIGMINE 10MG/10 ML INJ MDV ONE (14:09)
[2019-11-23] MEDS ORDERED: methylPREDNISolone ACETATE 40 MG/1 ML INJ INTRA-ARTI ONE (14:09)
[2019-11-23] MEDS ORDERED: GLYCOPYRROLATE 0.4 MG/2 ML INJ ONE (14:09)
[2019-11-23] MEDS ORDERED: LACTATED RINGERS 1,000 ML ONE (14:19)
--- NOTE | 2019-11-23 14:22 | Procedure Note ---
Date of procedure: 11/23/19 Pre-op diagnosis: Impingement syndrome right shoulder Post-op diagnosis: same Procedure: Arthroscopy [right] shoulder with subacromial decompression Procedure The patient was brought to the OR after being given a scalene nerve block for postop pain management, she was placed on the table supine following induction with MAC anesthesia patient was turned into the right lateral decubitus position at which point the right shoulder was prepped and draped in the usual sterile manner. A timeout procedure was done to identify the patient and the correct operative site. Routine arthroscopic portals were made into the subacromial space examination of the subacromial space revealed patient had abundant bursal thickening with apparent partial thickness tears in the supraspinatus tendon along with a large bone spur noted at the distal acromion using a combination of arthroscopic shaver and tissue ablator the subacromial space was debrided of soft tissue and the arm was then rotated internally and externally to see if there were a full-thickness rotator cuff tear done was seen next the arthroscope was placed into the glenohumeral joint and examination here revealed the patient to have very little in the way of arthritic changes along the humeral he ad. In the glenoid fossa he was noted to have thinning of the labral tissue the biceps labral complex appeared to be intact without any undue tension noted next the arthroscope was removed from the glenohumeral joint and then repositioned into the subacromial space using a 5.5 bur or acromionizer the bone spurs were debrided. A second look was done to see if there are any any residual bony and soft tissue debris and none was seen the arthroscope was then removed the stab wounds were repaired routine postop dressings were applied and the patient tolerated the procedure Anesthesia: MAC, regional Surgeon: CHUCKY POLANCO Sales Development Coordinator: SAIMA SAPP Estimated blood loss: minimal Pathology: none Condition: stable Disposition: PACU
[2019-11-23] MEDS ORDERED: PHENYLEPHRINE/NS 1,000 MCG/10 ML SYRINGE (OR USE) IV ONE (15:32)
[2019-11-23 16:28] VITALS: BP 120/81
--- NOTE | 2019-11-23 17:47 | Post Anesthesia Evaluation ---
- Post Anesthesia Evaluation Patient Participated: Yes Airway Patent: Yes Stable Respiratory Function: Yes Nausea/Vomiting: No Temp > 96.8F: Yes Pain Manageable: Yes Adequeate Hydration: Yes Anesthesia Complications: No Block Receding Appropriately: Yes
== END 2019-11-23 17:20 | disposition home or self-care (01) ==
LOC: OR 08:46
PROVIDERS: ATTEND Orthopaedic Surgery
DX: M75.41 Impingement syndrome of right shoulder (principal); Z20.828 Contact with and (suspected) exposure to other viral communicable diseases; F17.210 Nicotine dependence, cigarettes, uncomplicated; J44.9 Chronic obstructive pulmonary disease, unspecified; I10 Essential (primary) hypertension; K21.9 Gastro-esophageal reflux disease without esophagitis; M19.90 Unspecified osteoarthritis, unspecified site; F31.9 Bipolar disorder, unspecified; E78.00 Pure hypercholesterolemia, unspecified; F41.9 Anxiety disorder, unspecified; E66.9 Obesity, unspecified; Z68.39 Body mass index [BMI] 39.0-39.9, adult; Z88.6 Allergy status to analgesic agent; Z79.899 Other long term (current) drug therapy; Z90.49 Acquired absence of other specified parts of digestive tract; Z90.710 Acquired absence of both cervix and uterus; Z86.2 Personal history of diseases of the blood and blood-forming organs and certain disorders involving the immune mechanism; Z88.8 Allergy status to other drugs, medicaments and biological substances
CPT/HCPCS: 29822; 36415; 64415; 80048; 85027; A4217; J0171; J0690; J1030; J1100; J1170; J2250; J2370; J2405; J2704; J2710; J3010; J7120; U0003

== ENCOUNTER 2021-06-20 07:31 | Day surgery (SDC) | payer MEDICAID ==
[~2021-06-20 07:31] MED LIST changes: -ACETAMINOPHEN 500 MG TAB PO SCH; -BUPIVACAINE-EPINEPHRINE/PF 0.25%-1:200,000 (30 ML) VIAL INFILTRATI ONE; -GABAPENTIN 300 MG CAP PO NR; -LACTATED RINGERS 1,000 ML IV SCH; +SODIUM CHLORIDE 0.9% 1000 ML 1,000 ML IV SCH; -SODIUM CHLORIDE 0.9% IRRIG SOLN 3000 ML IR ONE; +WATER FOR IRRIG STERILE 1,000 ML BOTTLE ONE; +WATER FOR IRRIG STERILE 250 ML BOTTLE IR ONE; -ceFAZolin/STERILE WATER 2 GM/20 ML SYRINGE IV NR; -methylPREDNISolone ACETATE 40 MG/1 ML INJ INTRA-ARTI ONE
[2021-06-20] MEDS ORDERED: LIDOCAINE MPF (2%) 20 MG/1 ML VIAL 5 ML ONE (07:49)
[2021-06-20] MEDS ORDERED: fentaNYL 100 MCG/2 ML INJ ONE (07:49)
[2021-06-20] MEDS ORDERED: ONDANSETRON 4 MG/2 ML INJ ONE (07:49)
[2021-06-20] MEDS ORDERED: propofoL 200 MG/20 ML VIAL IV ONE ×3 (07:50→09:05)
--- NOTE | 2021-06-20 08:07 | Anesthesia Consultation ---
Anesthesia Consult and Med Hx Date of service: 06/20/21 - Airway Anesthetic Teeth Evaluation: Good ROM Head & Neck: Adequate Mental/Hyoid Distance: Adequate Mallampati Class: Class II Intubation Access Assessment: Good - Pre-Operative Health Status ASA Pre-Surgery Classification: ASA3 Proposed Anesthetic Plan: MAC (GA if needed) - Pulmonary Hx Smoking: Yes (03/04-03/02 PPD) Hx Asthma: Yes Hx Respiratory Symptoms: No COPD: Yes Hx Pneumonia: No Hx Sleep Apnea: No - Cardiovascular System Hx Hypertension: Yes (being monitored; no rx currently) Hx Heart Attack/AMI: No Hx Percutaneous Transluminal Coronary Angioplasty (PTCA): No Hx Cardia Arrhythmia: No - Central Nervous System CVA: No Hx Back Pain: Yes Hx Psychiatric Problems: Yes (anxiety/depression/bipolar disorder) - Gastrointestinal Hx Gastroesophageal Reflux Disease: Yes - Endocrine Hx Renal Disease: No Hx End Stage Renal Disease: No Hx Liver Disease: No Hx Insulin Dependent Diabetes: No Hx Thyroid Disease: No - Hematic Hx Anemia: Yes ( CHILD) Hx Sickle Cell Disease: No (SC TRAIT) - Other Systems Hx Cancer: No Hx Obesity: Yes
--- NOTE | 2021-06-20 08:08 | Anesthesia Day of Surgery ---
Anesthesia Day of Surgery - Day of Surgery Patient Examined: Yes Patient H&P Reviewed: Yes Patient is NPO: Yes
[2021-06-20] MEDS ORDERED: PHENYLEPHRINE/NS 1,000 MCG/10 ML SYRINGE (OR USE) IV ONE (09:25)
--- NOTE | 2021-06-20 09:52 | Short Stay Summary ---
Short Stay Documentation Date of service: 06/20/21 - History Principal diagnosis: GERD with colon cancer screening H&P: obtained from office - Allergies and Medications Current Medications: Allergies aspirin Allergy (Verified 11/16/19 15:53) Rash , GI UPSET banana Allergy (Verified 11/16/19 15:53) Rash/ GI UPSET Home Medications Medication Instructions Recorded Confirmed Last Taken Type Bupropion HCl [Wellbutrin Xl] 300 mg PO QAM #30 tab.er.24h 05/14/17 11/23/19 11/21/19 Rx Fluticasone/Vilanterol [Breo 1 each IH BID #1 blst.w.dev 05/14/17 11/23/19 11/23/19 08:00 Rx Ellipta 200-25 Mcg INH] Albuterol Mdi (or & Nicu Only) 2 puff IH PRN PRN 11/16/19 11/23/19 09/30/19 History [ProAir HFA Inhaler] Trazodone HCl 50 mg PO PRN PRN 11/16/19 11/16/19 Unknown History Oxycodone HCl/Acetaminophen 1 each PO Q6HR PRN #30 tablet 11/23/19 Unknown Rx [Percocet 7.5/325 mg] Active Medications Sodium Chloride (Nacl 0.9% 1000 Ml) 1,000 mls @ 50 mls/hr IV DIRECT LEONARD - Physical exam General appearance: no acute distress Integumentary: no rash Lungs: Clear to auscultation Heart: Regular rate Gastrointestinal: normal, normoactive bowel sounds Rectal Exam: normal exam-external/orifice, normal rectal tone, hemorrhoids - Brief post op/procedure progress note Date of procedure: 06/20/21 Pre-op diagnosis: GERD and colon cancer screening Post-op diagnosis: other (Z-line at 39 cm, antral polyp, internal hemorrhoids and 4 polyps at 20 cm) Procedure: EGD with biopsy and coonoscopy with snare polypectomy at 18 to 20 cm x 3 Anesthesia: MAC Findings: Minimal erosive esophagitis with Z-line at 39 cm and a small antral polyp of the stomach. Colonoscopy showing an internal hemorrhoid with 3-4 polyps removed at 18 to 20 cm. Prep was good. Surgeon: PATRIZIA MURILLO Estimated blood loss: minimal Pathology: list (Biopsy of antral polyp, biopsy of antrum for H. pylori, 3 polyps removed with snare polypectomy at 20 cm.) Specimen disposition: to lab Condition: stable - Disposition Condition at discharge: Good Disposition: 01 HOME / SELF CARE / HOMELESS Short Stay Discharge Plan Activity: advance as tolerated Weight Bearing Status: Weight Bear as Tolerated Diet: regular (Follow-up with Dr. Murillo on 06/23/2021 at 10:00) Follow up with: APRIL TIAN MD [Primary Care Provider] - 7 Days
[2021-06-20 11:11] VITALS: BP 133/81
--- NOTE | 2021-06-20 14:57 | Post Anesthesia Evaluation ---
- Post Anesthesia Evaluation Patient Participated: Yes Airway Patent: Yes Stable Respiratory Function: Yes Nausea/Vomiting: No Temp > 96.8F: Yes Pain Manageable: Yes Adequeate Hydration: Yes Anesthesia Complications: Yes Block Receding Appropriately: No
--- NOTE | 2021-06-27 08:42 | Operative Report ---
Operative Report Operative Report: Date: 06/20/2021 Preop diagnosis: Epigastric pain, GERD, colon cancer screening Postop diagnosis: Same Procedure: Esophagogastroduodenoscopy with biopsy of antrum and polypectomy x4 at 20 cm Surgeon: Dr. Murillo Anesthesia: MAC IV sedation Specimen: Biopsy of antrum for H. pylori and polypectomy at 20cm of the colon Estimated blood loss: Less than 5 cc. Procedure: EGD w bx Patient is taken into the endoscopic suite. Timeouts are completed. Under IV sedation and monitored anesthesia care bite block is placed. The flexible upper endoscope was advanced through the hypopharynx, and cricopharyngeus. Cords are visualized and are normal. The scope was advanced through the thoracic esophagus which is normal. The LES is visualized at 35 cm. There is no signs of advanced erosions no tumors. Scope was advanced through the LES and retroflexed. Small hiatal hernia seen. Scope was returned to forward-looking position and advanced through the midportion of the stomach where the antrum and incisura are visualized and are normal. A biopsy of the antrum was obtained for H. pylori. Scope was advanced through the pylorus and second and third portion of the duodenum are visualized and are normal. The scope was then withdrawn. Biopsy of the LES is obtained. The procedure is ended. Procedure: Colonoscopy Patient is taken to the endoscopic suite timeouts are completed consent on the chart. Rectal exam is performed and is normal. Scope was advanced through the rectum into the rectosigmoid colon. At 20 cm 4 polyps were seen and removed with cautery snare. The sigmoid colon is inspected and is normal. The transverse colon is identified and inspected and is normal. Scope was then advanced down the ascending colon to the cecum. The kluti kaah's foot ileocecal valve and appendiceal aperture are identified. Tip of the scope was confirmed to be in the right lower quadrant by palpation. Scope was slowly withdrawn confirming the above findings. The scope was then removed and the procedure is ended.
== END 2021-06-20 10:27 | disposition home or self-care (01) ==
LOC: GIO 07:31
PROVIDERS: ATTEND Surgery
DX: Z12.11 Encounter for screening for malignant neoplasm of colon (principal); K21.01 Gastro-esophageal reflux disease with esophagitis, with bleeding; R10.13 Epigastric pain; K31.7 Polyp of stomach and duodenum; K63.5 Polyp of colon; K31.89 Other diseases of stomach and duodenum; K63.89 Other specified diseases of intestine; Z79.899 Other long term (current) drug therapy; F17.210 Nicotine dependence, cigarettes, uncomplicated; J44.9 Chronic obstructive pulmonary disease, unspecified; M79.10 Myalgia, unspecified site; E78.00 Pure hypercholesterolemia, unspecified; I10 Essential (primary) hypertension; E66.9 Obesity, unspecified; M19.90 Unspecified osteoarthritis, unspecified site; F31.9 Bipolar disorder, unspecified; F41.9 Anxiety disorder, unspecified; Z88.6 Allergy status to analgesic agent; Z88.8 Allergy status to other drugs, medicaments and biological substances; Z90.49 Acquired absence of other specified parts of digestive tract; Z90.710 Acquired absence of both cervix and uterus; Z98.890 Other specified postprocedural states; Z68.39 Body mass index [BMI] 39.0-39.9, adult
CPT/HCPCS: 43239; 45385; 88305; 88342; J2370; J2405; J2704; J3010; J7030